=== PATIENT | female | born 1970 | race Two or more races ===

== ENCOUNTER 2024-12-07 05:55 | Emergency (ER) | payer MEDICAID, SELFPAY ==
[2024-12-07 05:57] VITALS: BMI 47.8
[2024-12-07 06:28] VITALS: BP 105/72; PULSE 60; RESP 17; TEMP 37.1; O2SAT 96
--- NOTE | 2024-12-07 06:31 | XR_ITS ---
Examination: Lumbar spine 3 views Technique: AP lateral coned lateral lower lumbar spine 3 views Date and time: December 07, 2024 0708 hrs. Indications: Onset lower back pain today. Findings: Grade 1 anterolisthesis L4 on L5 No lumbar fracture. Mild disc narrowing L4-L5, L5-S1 No spondylolisthesis Impression: Mild degenerative disc disease L4-L5, L5-S1
--- NOTE | 2024-12-07 06:32 | EDNOTE_ITS ---
<Statement entered by Anjelica Cheng MD - 12/07/24 11:01> As co-signing physician, I was present and available for consult prn. I concur with the plan and care as documented by the midlevel provider. Nausea/Vomit./Diarrhea-RME/HPI General Chief complaint: Back Pain/Injury Stated complaint: LOW BACK PAIN Time Seen by Provider: 12/07/24 06:22 Source: patient Arrival date/time: 12/07/24 05:55 54-year-old female with a history of hypertension, type 2 diabetes presents to the emergency room with a chief complaint of lower lumbar back pain and nausea vomiting x 5 hours Mode of arrival: ambulatory Limitations: no limitations Related Data Home Medications ?Medication ?Instructions ?Recorded ?Confirmed amlodipine 5 mg tablet 10 mg PO QDAY 06/23/1809/17 losartan 100 1 tab PO QDAY 06/23/1809/17 mg-hydrochlorothiazide 25 mg tablet apixaban 5 mg tablet (Eliquis) 5 mg PO BID 09/17/21 empagliflozin 25 mg tablet 25 mg PO QDAY 09/17/2109/05 (Jardiance) hydrochlorothiazide 25 mg tablet 25 mg QDAY 09/17/21 0 09/17/21 metformin 1,000 mg tablet 1,000 mg PO BIDWMEAL 2 09/17/21 Previous Rx's ?Medication ?Instructions ?Recorded amlodipine 10 mg tablet 10 mg PO QDAY #30 tabs 09/11 empagliflozin 25 mg tablet 25 mg PO QDAY #30 tabs 10/27 (Jardiance) hydrochlorothiazide 25 mg tablet 25 mg PO QDAY #30 tab s 09/11/22 metformin 1,000 mg tablet 1,000 mg PO BIDWMEAL #60 tab s 09/11/22 Allergies Allergy/AdvReac Type Severity Reaction Status Date / Time No Known Allergies Allergy Verified 12/07/24 06:00 Review of Systems Review of Systems Systems Reviewed: All systems reviewed, normal except as documented Constitutional Constitutional: Reports system reviewed and no additional complaints, except as documented, Denies fatigue, Denies fever(s), Denies headache(s) and Denies weakness Eyes Eyes: Reports system reviewed and no additional complaints, except as documented, Denies blurry vision and Denies change in vision ENT Ears, Nose, Mouth, and Throat: Reports system reviewed and no additional complaints, except as documented, Denies otalgia, Denies headache(s), Denies nasal congestion, Denies throat swelling and Denies vertigo Cardiovascular Cardiovascular: Reports system reviewed and no additional complaints, except as documented, Denies chest pain, Denies dyspnea and Denies dyspnea on exertion Respiratory Respiratory: Reports system reviewed and no additional complaints, except as documented, Denies chest congestion, Denies cough, Denies dyspnea, Denies dyspnea on exertion and Denies wheezing Gastrointestinal Gastrointestinal: Reports system reviewed and no additional complaints, except as documented, Denies abdominal pain, Denies cramping, Denies nausea and Denies vomiting Genitourinary Genitourinary: Reports system reviewed and no additional complaints, except as documented Musculoskeletal Musculoskeletal: Reports system reviewed and no additional complaints, except as documented and Denies back pain Integumentary/Breasts Skin/Breast: Reports system reviewed and no additional complaints, except as documented and Denies wounds Neurologic Neurologic: Reports system reviewed and no additional complaints, except as documented, Denies confusion, Denies headache(s), Denies lack of coordination, Denies vertigo and Denies weakness Psychiatric Psychiatric: Reports system reviewed and no additional complaints, except as documented, Denies anxiety, Denies confusion, Denies depression, Denies paranoia, Denies suicidal ideation and Denies tactile hallucinations Endocrine Endocrine: Reports system reviewed and no additional complaints, except as documented and Denies fatigue Hematologic/Lymphatic Hematologic/Lymphatic: Reports system reviewed and no additional complaints, except as documented and Denies lymphadenopathy Allergic/Immunologic Allergic/Immunologic: Reports system reviewed and no additional complaints, except as documented, Denies throat swelling, Denies urticaria and Denies wheezing ED Exam General Limitations: Present no limitations General appearance: Present alert and in no apparent distress Head Head exam: Present atraumatic Eye Eye exam: Present normal appearance, PERRL and EOMI ENT ENT exam: Present normal exam, normal oropharynx and mucous membranes moist Neck Neck exam: Present normal inspection, full ROM and trachea midline Chest Chest inspection: Present normal inspection and symmetric chest wall rise Respiratory Respiratory exam: Present normal lung sounds bilaterally Cardiovascular Cardiovascular exam: Present regular rate, normal rhythm and normal heart sounds; Absent bradycardia, tachycardia or irregular rhythm Abdominal Exam Abdominal exam: Present soft and normal bowel sounds; Absent distention, tenderness, guarding, rebound or rigidity Extremities Exam Extremities exam: Present normal inspection and full ROM Back Exam Back exam: Present normal inspection and full ROM Neurological Exam Neurological exam: Present alert, oriented X3 and CN II-XII intact Psychiatric Psychiatric exam: Present normal affect and normal mood Skin Skin exam: Present warm, dry, intact and normal color Course Quality Measures none Orders Category Date Time Status XR lumbar spine 2-3V Stat Exams 12/07/24 06:31 Completed CBC Stat Lab 12/07/24 06:53 Completed CMP [Comprehensive Metabolic Panel] Stat Lab 12/07/24 06:53 Completed HCG Qualitative,Urine Stat Lab 12/07/24 08:11 Completed Lipase Stat Lab 12/07/24 06:53 Completed UA [Urinalysis] Stat Lab 12/07/24 08:11 Completed Urine Culture Stat Lab 12/07/24 08:11 Received Ketorolac Inj [Toradol Inj] Med 12/07/24 06:32 Discontinued 30 mg IM X1 ONE Ondansetron Odt [Zofran Odt] Med 12/07/24 06:32 Discontinued 4 mg PO X1 ONE Vital Signs Vital signs: Vital Signs Temperature 98.8 F 12/07/24 06:28 Pulse Rate 60 12/07/24 06:28 Respiratory Rate 17 12/07/24 06:28 Blood Pressure 105/72 12/07/24 06:28 Pulse Oximetry (%) 96 12/07/24 06:28 Oxygen Delivery Method Room Air 12/07/24 06:28 Nausea/Vomiting/Diarrhea MDM Narrative MDM Narrative:: 54-year-old female with a history of hypertension, type 2 diabetes presents to the emergency room with a chief complaint of lower lumbar back pain and nausea vomiting x 5 hours Patient is hemodynamically stable in no apparent distress Physical examination shows some bilateral vertebral lumbar tenderness with palpation. There is no CVA tenderness bilaterally. The patient has a soft nontender abdomen. Patient is having some nausea and vomiting x 5 hours. Antiemetics were given with significant improvement to the patient's symptoms. CBC CMP and urinalysis were within normal limits Patient was discharged and educated to follow-up with primary care provider in the next 24 to 48 hours and return to the emergency room for any evidence of worsening signs or symptoms Patient data External records reviewed:: [facility] previous records Clinical information provided by:: patient Social determinants that could affect healthcare access:: none Patient has the following chronic illnesses:: No chronic illness How is presenting disease/condition affected by chronic disease/condition?: no chronic disease Evaluation data The following diagnostics were reviewed and interpreted by me:: lab results and radiology exam(s) Lab and/or radiology exams considered but not ordered:: Labs and radiology exams considered in order Interpretation Summary: N/A Medications / Prescriptions Medications / Prescriptions considered but not ordered:: Medication given Medication administrations:: Medication Administration History Discontinued Medications Ketorolac Tromethamine (Ketorolac Inj 60 Mg/2 Ml Vial) 30 mg IM X1 ONE Stop: 12/07/24 06:33 Last Admin: 12/07/24 07:22 Dose: 30 mg Documented By: STEF Ondansetron HCl (Ondansetron Odt 4 Mg Tabrap) 4 mg PO X1 ONE; Protocol Stop: 12/07/24 06:33 Last Admin: 12/07/24 07:21 Dose: 4 mg Documented By: STEF Medication given Consultations Consultation(s) initiated? (list below): No Diagnosis Nausea Differential Diagnosis: gastroenteritis, dehydration and other (Lumbar back sprains/urinary tract infection) Most likely diagnosis given after review of the tests above:: Lumbar back sprain Admission Indicated Admission indicated?: not indicated Admission Request Was there a request for admission?: No Disposition Plan Disposition Plan: Discharge Discharge Attestation Discharge Attestation: The patient and all family members were given an opportunity to ask questions and understood the discharge instructions. Discharge instructions specifically effects, indications for sooner follow up or return to the emergency department, and the expected course of current diagnosis. Patient condition: Stable Discharge Plan Plan Patient Disposition: HOME (Self Care) Discharge Disposition comment: Stable Prescriptions/Referrals Prescriptions/Med Rec: No Action amlodipine 5 mg Tablet 10 mg PO QDAY losartan-hydrochlorothiazide 100-25 mg Tablet 1 tab PO QDAY Eliquis 5 mg tablet 5 mg PO BID MDD 4 hydrochlorothiazide 25 mg Tablet 25 mg QDAY Jardiance 25 mg Tablet 25 mg PO QDAY metformin 1,000 mg Tablet 1,000 mg PO BIDWMEAL amlodipine 10 mg tablet 10 mg PO QDAY Qty: 30 0RF Jardiance 25 mg tablet 25 mg PO QDAY Qty: 30 0RF metformin 1,000 mg tablet 1,000 mg PO BIDWMEAL Qty: 60 0RF hydrochlorothiazide 25 mg tablet 25 mg PO QDAY Qty: 30 0RF Referrals: Oscar Lezama MD [Primary Care Provider] - In 1 week Problem List Clinical Impression: Strain of lumbar region, Degenerative disc disease Patient/Caregiver Discharge Instructions Additional Instructions: Please follow-up with your primary care provider in the next 24 to 48 hours X-ray of your lumbar spine shows some degenerative disc disease. Your blood work and urinalysis were within normal limits For any evidence of worsening signs or symptoms return the emergency room immediately Print Language: Uzbek Stand Alone Forms: [employer]ela Award Info., Patient Portal Info Letter PA/SURVEILLANCE MANAGER Supervising Physician PA/SURVEILLANCE MANAGER Supervising Physician: Dr. CHENG
[2024-12-07 07:11] LABS: Basophils # (Auto) 0.1 Thou/mm3 (0.0-0.2); Basophils % (Auto) 1 % (0-2.5); Eosinophils # (Auto) 0.2 Thou/mm3 (0.0-0.5); Eosinophils % (Auto) 2 % (0-10); Hematocrit 44.2 % (36.0-46.0); Hemoglobin 14.7 g/dL (12.0-16.0); Immature Granulocytes Auto 0.03 Thou/mm3 (0.00-0.00); Lymphocytes # (Auto) 2.6 Thou/mm3 (1.0-4.8); Lymphocytes % (Auto) 23 % (10-50); Mean Corpuscular HGB Conc 33.3 g/dl (31.0-37.0); Mean Corpuscular Hemoglobin 29.4 pg (25.0-35.0); Mean Corpuscular Volume 88 fL (80-100); Monocytes # (Auto) 0.5 Thou/mm3 (0.0-0.8); Monocytes % (Auto) 5 % (0-12); Neutrophils # (Auto) 7.6 Thou/mm3 (1.8-7.7); Neutrophils % (Auto) 70 % (37-80); Nucleated Red Blood Cell # 0.00 Thou/mm3 (0.00-0.00); Nucleated Red Blood Cell % 0 /100 WBC (0); Platelet Count 286 Thou/mm3 (140-440); RDW Standard Deviation 43.8 fL (36.4-46.3); Red Blood Count 5.00 Miln/mm3 (4.00-5.20); White Blood Count 11.0 Thou/mm3 (3.6-11.0)
[2024-12-07] MEDS: ONDANSETRON ODT 4 MG TABRAP PO (07:21)
[2024-12-07] MEDS: KETOROLAC INJ 60 MG/2 ML VIAL 30 MG IM (07:22)
[2024-12-07 07:32] LABS: Alanine Aminotransferase 22 U/L (10-49); Albumin, Serum 4.2 gm/dL (3.5-5.0); Albumin/Globulin Ratio 1.6 (1.2-2.2); Alkaline Phosphatase 95 U/L (46-116); Anion Gap 8 (7-16); Aspartate Amino Transferase 22 U/L (0-34); BUN/Creatinine Ratio 13 Ratio (12-20); Bilirubin,Total 0.7 mg/dL (0.3-1.2); Blood Urea Nitrogen 10 mg/dL (9-23); Calcium 9.9 mg/dL (8.3-10.6); Calcium (Corrected) 9.9 mg/dL (8.5-10.1); Carbon Dioxide 29.4 mMol/L (20.0-31.0); Chloride 107 mMol/L (98-107); Creatinine (Component) 0.8 mg/dL (0.6-1.3); Estimated Creatinine Clearance 100.9 mL/min (>60); Globulin 2.6 gm/dL (2.3-3.5); Glucose 123 mg/dL (74-106); Lipase 49 U/L (12-53); Osmolality,Calculated 286 (275-295); Potassium 4.1 mMol/L (3.4-5.1); Sodium 144 mMol/L (136-145); Total Protein 6.8 gm/dL (5.7-8.2); eGFR > 60 See Note
[2024-12-07 08:23] LABS: Collection Type, Urine Clean Catch
[2024-12-07 08:51] LABS: Bacteria,Urine 1+; Bilirubin,Urine Negative (Negative); Blood,Urine Negative (Negative); Color,Urine Yellow (Lt Yel-Yel); Glucose, Urine 4+ (Negative); Ketones,Urine Negative (Negative); Leukocyte Esterase,Urine Positive (Negative); Nitrite,Urine Negative (Negative); PH,Urine 5.5 (5.0-7.0); Protein,Urine 1+ (Neg - Trace); RBC,Urine 5 /hpf (0-3); Specific Gravity,Urine 1.050 (1.001-1.035); Squamous Epithelial Cell,Urine 34 /hpf (0-5); Urobilinogen,Urine Negative mg/dL (0.0-1.0); WBC,Urine 12 /hpf (0-5)
[2024-12-07 08:53] LABS: HCG Qualitative,Urine Negative
[2024-12-07 09:01] LABS: Clarity,Urine Hazy (Clear/Hazy)
== END 2024-12-07 11:00 | disposition home or self-care (01) ==
PROVIDERS: Emergency Provider Nurse Practitioner Family; PCP Family Medicine
DX: S39.012A Strain of muscle, fascia and tendon of lower back, initial encounter (principal); M51.360 Other intervertebral disc degeneration, lumbar region with discogenic back pain only; M51.370 Other intervertebral disc degeneration, lumbosacral region with discogenic back pain only; X58.XXXA Exposure to other specified factors, initial encounter
CPT/HCPCS: 36415; 72100; 80053; 81001; 81025; 83690; 85025; 87077; 87086; 87186; 96372; 99283; J1885; Q0162